=== PATIENT | female | born 1995 | race African-American/Black ===

== ENCOUNTER → 2018-09-23 | Outpatient (CLI) | payer OTHER, SELFPAY ==
[~2018-09-23] MED LIST: PRENTAB9 PO
[2018-09-23 13:38] LABS: BASO % 0.2 % (0.0-1.0); EOS # 0.1 10^3/uL (0.0-0.50); EOS % 1.9 % (0.0-3.0); HEMATOCRIT 39.8 % (36.0-47.0); HEMOGLOBIN 13.2 g/dl (12.0-15.5); LYMPH # 1.6 10^3/uL (1.5-6.5); LYMPH % 37.6 % (24.0-44.0); MEAN CORPUSCULAR HEMOGLOBIN 30.2 pg (27.0-33.0); MEAN CORPUSCULAR HGB CONC 33.2 g/dl (32.0-36.5); MEAN CORPUSCULAR VOLUME 91.1 fl (80.0-96.0); MONO # 0.3 10^3/uL (0.0-0.8); MONO % 7.5 % (0.0-5.0); NEUTROPHILS # 2.2 10^3/uL (1.8-7.7); NEUTROPHILS % 52.6 % (36.0-66.0); PLATELET COUNT, AUTOMATED 204 10^3/uL (150-450); RED BLOOD COUNT 4.37 10^6/uL (4.00-5.40); WHITE BLOOD COUNT 4.3 10^3/uL (4.0-10.0)
[2018-09-23 14:02] LABS: BLOOD UREA NITROGEN 10 MG/DL (7-18); CALCIUM LEVEL 9.6 MG/DL (8.5-10.1); CARBON DIOXIDE LEVEL 27 MEQ/L (21-32); CHLORIDE LEVEL 108 MEQ/L (98-107); CREATININE FOR GFR 0.86 MG/DL (0.55-1.30); GLOMERULAR FILTRATION RATE > 60.0 (>60); GLUCOSE, FASTING 92 MG/DL (70-100); POTASSIUM SERUM 3.8 MEQ/L (3.5-5.1); SODIUM LEVEL 141 MEQ/L (136-145)
== END ==
LOC: M SMT 09:35
PROVIDERS: ATTEND Podiatrist
DX: M25.775 Osteophyte, left foot (principal); M79.672 Pain in left foot

== ENCOUNTER 2018-10-08 07:55 | Day surgery (SDC) | payer BC, OTHER ==
[~2018-10-08] VITALS: Ht 175.3 cm; Wt 49.9 kg
[~2018-10-08 07:55] MED LIST changes: +LIDOCAINE 2% INJ 100 MG/5 ML SDV (FOR ANES.) As Ordered ONE; +LR 1,000 ML IV SCH; +MIDAZOLAM INJ 2 MG/2 ML VIAL (J2250) As Ordered ONE; +PROPOFOL 200 MG/20 ML VIAL As Ordered ONE; +fentaNYL 100 MCG/2 ML INJECTION (J3010) As Ordered ONE
[2018-10-08] MEDS ORDERED: LIDOCAINE 2% MDV 20 ML VIAL As Ordered ONE (08:01)
[2018-10-08] MEDS ORDERED: dexameTHASONE 4 MG/ML 1ML VIAL (J1100) As Ordered ONE ×2 (08:01→09:23)
[2018-10-08] MEDS ORDERED: BUPIVACAINE HCL 0.5% 10 ML VIAL As Ordered ONE ×2 (08:01→08:41)
[2018-10-08] MEDS ORDERED: BACITRACIN PWD 50,000 UNITS VIAL As Ordered ONE (08:02)
[2018-10-08] MEDS ORDERED: NEOSPORIN GU IRRIG 20 ML VIAL As Ordered ONE (08:02)
[2018-10-08 08:53] LABS: HCG, SERUM QUALITATIVE NEGATIVE (NEGATIVE)
[2018-10-08] MEDS ORDERED: KETOROLAC 60 MG/2 ML VIAL (J1885) As Ordered ONE (09:23)
[2018-10-08] MEDS ORDERED: ONDANSETRON 4MG/2ML VIAL (J2405) As Ordered ONE (09:23)
[2018-10-08 11:00] VITALS: BP 128/82
[2018-10-08] MEDS ORDERED: METOCLOPRAMIDE INJ 10MG/2ML VIAL (J2765) IV PRN (11:00)
[2018-10-08] MEDS ORDERED: fentaNYL 100 MCG/2 ML INJECTION (J3010) IV PRN (11:00)
[2018-10-08] MEDS ORDERED: ONDANSETRON 4MG/2ML VIAL (J2405) IV PRN (11:00)
[2018-10-08] MEDS ORDERED: PERCOCET 5MG/325MG TAB PO PRN (11:00)
--- NOTE | 2018-10-08 11:07 | REP ---
Left foot: Three views obtained portably. History: Postop. No comparison imaging. Findings: Three views of the left foot are obtained through overlying dressing. There is soft tissue swelling and irregularity about the great toe. Bones, joints, and soft tissues are otherwise unremarkable. Electronically Signed by Jason Jackson MD 10/08/2018 10:59 A
--- NOTE | 2018-10-09 08:21 | RO ---
DATE OF PROCEDURE: 10/08/2018 PREPROCEDURE DIAGNOSIS: Subungual exostosis distal phalanx left hallux. POSTPROCEDURE DIAGNOSIS: Subungual exostosis distal phalanx left hallux. PROCEDURE PERFORMED: Excision of subungual exostosis left foot. SURGEON: Dr. Subhash Starks DPM [employer] REPAIRER: None. ANESTHESIA: IRRIGATION: Dilute bacitracin, neomycin and polymyxin B solution. IMPLANTABLES: Dental Gelfoam. HEMOSTASIS: Ankle pneumatic tourniquet at 250 mmHg for 20 minutes, left ankle. DESCRIPTION OF PROCEDURE: On 10/08/2018, this 23-year-old black female was taken from her hospital room to the operating room, placed on the operating table in the supine position following the induction of intravenous (IV) sedation and local and regional anesthesia. The left lower extremity was prepped and draped in the usual aseptic manner. Attention was directed to the patient's left foot where the nail was elevated. The nail plate was removed with a [place] elevator. An incision was made around the distal aspect of the nail bed. The nail bed was gently elevated. The area of hyperkeratotic tissue was excised revealing a subungual exostosis. This was rongeured with a rongeur and osteotome, followed by a hand file. Intraoperative C-arm imagery revealed resection of the exostosis. The wound was flushed with copious amounts of dilute bacitracin, neomycin and polymyxin B solution. The nail bed was repaired with #4-0 Prolene in a simple interrupted type fashion. The area that was excised was covered with Gelfoam followed by Adaptic and a sterile dressing. Ankle pneumatic tourniquet was rapidly deflated, instantaneous capillary filling time was noted to the lesser digits. The patient having apparently tolerated the surgical procedure well was taken from the operating room (OR) to the recovery room for further monitoring by the anesthesia department. Postoperative instructions given upon discharge.
== END 2018-10-08 11:20 | disposition home or self-care (01) ==
LOC: M SDC 07:55
PROVIDERS: ATTEND Podiatrist
DX: M25.775 Osteophyte, left foot (principal); M79.672 Pain in left foot
CPT/HCPCS: 28124; 36415; 73630; 84703; 88305; 88311; 97116; J0690; J1100; J1885; J2250; J2405; J3010

== ENCOUNTER 2020-06-08 20:28 | Emergency (ER) | payer BC, OTHER ==
[~2020-06-08] VITALS: Ht 175.3 cm; Wt 60.9 kg
[~2020-06-08 20:28] MED LIST changes: -LIDOCAINE 2% INJ 100 MG/5 ML SDV (FOR ANES.) As Ordered ONE; -LR 1,000 ML IV SCH; -MIDAZOLAM INJ 2 MG/2 ML VIAL (J2250) As Ordered ONE; -PROPOFOL 200 MG/20 ML VIAL As Ordered ONE; -fentaNYL 100 MCG/2 ML INJECTION (J3010) As Ordered ONE
[2020-06-09] MEDS ORDERED: DOXYCYCLINE HYCLATE 100MG TABLET PO ONE (00:15)
[2020-06-09] MEDS ORDERED: DOXY100C37 PO (01:28)
[2020-06-09 01:35] VITALS: BP 109/78
[2020-06-09 02:28] LABS: CHLAMYDIA DNA AMPLIFICATION NEGATIVE (NEGATIVE); GC DNA AMPLIFICATION NEGATIVE (NEGATIVE)
== END 2020-06-09 01:40 | disposition home or self-care (01) ==
LOC: M ED 20:28
DX: N89.8 Other specified noninflammatory disorders of vagina (principal); B95.8 Unspecified staphylococcus as the cause of diseases classified elsewhere

== ENCOUNTER → 2022-03-02 | Outpatient (REF) | payer MEDICAID ==
[~2022-03-02] MED LIST changes: +DOXY-443 PO
[2022-03-02 15:33] LABS: APPEARANCE, URINE MANUAL CLEAR (CLEAR); COLOR, URINE MANUAL YELLOW (YELLOW)
[2022-03-02 15:34] LABS: SPECIFIC GRAVITY,URINE MANUAL 1.025 (1.002-1.035); URINE PREG TEST NEGATIVE (NEGATIVE)
[2022-03-02 15:35] LABS: BILIRUBIN, URINE MANUAL NEGATIVE (NEGATIVE); BLOOD URINE MANUAL POSITIVE (NEGATIVE); GLUCOSE, URINE (UA) MANUAL NEGATIVE (NEGATIVE); KETONE, URINE MANUAL NEGATIVE (NEGATIVE); LEUKOCYTE ESTERASE, URINE MAN NEGATIVE (NEGATIVE); NITRITE, URINE MANUAL NEGATIVE (NEGATIVE); PROTEIN, URINE MANUAL NEGATIVE (NEGATIVE); UROBILINOGEN, URINE MANUAL NORMAL (NORMAL)
[2022-03-02 15:46] LABS: BACTERIA, URINE SMALL AMOUNT; HYALINE CAST, URINE NONE SEEN /lpf (0-1); RBC, URINE NONE SEEN /hpf (0-3); SQUAMOUS EPITHELIAL CELL URINE SMALL AMOUNT /hpf (SMALL AMT); WBC, URINE NONE SEEN /hpf (0-3)
== END ==
LOC: M LAB REF 15:02
PROVIDERS: ATTEND Physician Assistant
DX: O23.40 Unspecified infection of urinary tract in pregnancy, unspecified trimester (principal); Z3A.00 Weeks of gestation of pregnancy not specified